=== PATIENT | female | born 1965 | race Caucasian/White ===

== ENCOUNTER 2016-05-24 13:24 | Outpatient (CLI) | payer OTHER | END 2016-05-24 13:25 | disposition home or self-care (01) | LOC: HPCALD 13:24 | PROVIDERS: ATTEND Family Medicine | DX: E03.9 Hypothyroidism, unspecified (principal); R30.0 Dysuria | CPT/HCPCS: 36415; 84443; 87086 ==

== ENCOUNTER 2016-12-09 08:59 | Outpatient (CLI) | payer OTHER ==
[2016-12-09 09:59] LABS: ALT (SGPT) 13 U/L (8-55); AST (SGOT) 16 U/L (5-34); Albumin 4.6 g/dL (3.5-5.0); Alkaline Phosphatase 67 U/L (40-150); Anion Gap 16 mmol/L (10-20); BUN (Urea Nitrogen) 13 mg/dL (9.8-20.1); Bilirubin, Total 0.6 mg/dL (0.2-1.2); Calc. Creatinine Clearance 0 mL/min (70-130); Calcium 10.2 mg/dL (7.8-10.44); Carbon Dioxide 29 mmol/L (22-29); Cardiac Risk 2.9 (Less than 4.5); Chloride 97 mmol/L (98-107); Cholesterol 264 mg/dl (< 200 Desired); Estimated GFR-MDRD 59; Globulin 2.8 g/dL (2.4-3.5); Glucose 96 mg/dL (70-105); HDL Cholesterol 91 mg/dL (>60 Neg Risk); LDL Cholesterol, Calculated 158 mg/dL; Potassium 4.2 mmol/L (3.5-5.1); Protein, Total 7.4 g/dL (6.0-8.3); Sodium 138 mmol/L (136-145); Triglycerides 73 mg/dL (Less than 150)
[2016-12-09 11:04] LABS: #Basophils 0.1 thou/uL (0.0-0.2); #Eosinphils 0.1 thou/uL (0.0-0.7); #Lymphocytes 2.4 thou/uL (1.20-3.40); #Monocytes 0.6 thou/uL (0.11-0.59); #Neutrophils 2.8 thou/uL (1.40-6.50); %Basophils 1.5 % (0.0-1.0); %Eosinophils 2.4 % (0.0-10.0); %Lymphocytes 39.6 % (21.0-51.0); %Monocytes 10.2 % (0.0-10.0); %Neutrophils 46.3 % (42.0-75.0); Hemoglobin 14.3 g/dL (12.0-16.0); Mean Corpuscular HGB CONC 33.4 g/dL (32.0-36.0); Mean Corpuscular Hemoglobin 30.8 pg (27.0-31.0); Mean Corpuscular Volume 92.2 fl (81.0-99.0); Mean Platelet Volume 7.2 fL (7.4-10.4); Platelet Count 276 thou/uL (130-400); RBC Distribution Width 11.9 % (11.5-14.5); Red Blood Cell (RBC) Count 4.64 mill/uL (4.20-5.40)
== END 2016-12-09 09:00 | disposition home or self-care (01) ==
LOC: HPCALD 08:59
PROVIDERS: ATTEND Family Medicine
DX: E03.9 Hypothyroidism, unspecified (principal); I10 Essential (primary) hypertension
CPT/HCPCS: 36415; 80053; 80061; 84443; 85025

== ENCOUNTER 2018-06-18 11:48 | Outpatient (CLI) | payer OTHER ==
--- NOTE | 2018-06-18 21:22 | RAD ---
CHEST TWO VIEWS: 06/18/18 No prior films were available for comparison. The heart is normal in size and the lungs are clear. No infiltrate or effusion was seen. There is no vascular congestion or edema. No acute bony changes were seen. IMPRESSION: No acute findings. POS: HOME
== END 2018-06-18 11:49 | disposition home or self-care (01) ==
LOC: BURRAD 11:48
PROVIDERS: ATTEND Family Medicine
DX: R06.89 Other abnormalities of breathing (principal)
CPT/HCPCS: 36415; 71046; 85379